=== PATIENT | male | born 1985 | race Caucasian/White ===

== ENCOUNTER 2020-07-05 13:37 | Emergency (ER) | payer OTHER ==
[~2020-07-05] VITALS: Ht 182.9 cm; Wt 81.7 kg
[~2020-07-05 13:37] MED LIST: GLUMETZA500 PO; PAXIL40 MG
[2020-07-05] MEDS ORDERED: ALPRAZOLAM ER1 MG PO (13:53)
[2020-07-05] MEDS ORDERED: BACTRIM DS TAB1 EACH PO ×2 (14:43→14:45)
[2020-07-05] MEDS ORDERED: KEFLEX500 M1 PO ×2 (14:43→14:45)
[2020-07-05] MEDS ORDERED: APAP W/CODEINE1 TA2 PO ×2 (14:43→14:45)
[2020-07-05 14:54] VITALS: BP 125/72
== END 2020-07-05 14:56 | disposition home or self-care (01) ==
LOC: M.ERS 13:37
DX: L03.113 Cellulitis of right upper limb (principal); E10.9 Type 1 diabetes mellitus without complications; F17.210 Nicotine dependence, cigarettes, uncomplicated

== ENCOUNTER 2021-09-24 05:15 | Emergency (ER) | payer OTHER ==
[~2021-09-24] VITALS: Ht 172.7 cm; Wt 104.3 kg
[~2021-09-24 05:15] MED LIST changes: +ALPRAZOLAM ER1 MG PO; +APAP W/CODEINE1 TA2 PO; +BACTRIM DS TAB1 EACH PO; +KEFLEX500 M1 PO
[2021-09-24 06:01] VITALS: BP 144/108
--- NOTE | 2021-09-24 12:23 | EKG ---
[place] [address] ELECTROCARDIOGRAM REPORT Name: DAMON LAL Room: [facility]#: [id number] Admission: 09/24/21 Attend Phys: Discharge: 09/24/21 Date of : 89 Date of Service: 09/24/21512 Report #: [id number] THIS REPORT FOR: //name// [facility] ED Test Date: 2021-09-24 Test Time: 05:13:08 Pat Name: DAMON LAL Department: Room: Gender: Critical Care Physician Assistant: MA : [id number] Requested By: Mikaela Yuen Order Number: [id number] MD: Isaias Berg Measurements Intervals [place] Rate: 109 P: 60 CT: 162 QRS: 36 QRSD: 92 T: 22 QT: 317 QTc: 427 Interpretive Statements Sinus tachycardia Low voltage, precordial leads Baseline wander in lead(s) V2 Electronically Signed On 09-24-2021 12:23:41 [employer] by Isaias Berg [email or web address] <ELECTRONICALLY SIGNED> By: Isaias Berg MD, [facility] 09/24/21 1223 2 Isaias Berg MD, [facility] /EPI
== END 2021-09-24 06:01 | disposition home or self-care (01) ==
LOC: M.ERS 05:15
DX: F41.9 Anxiety disorder, unspecified (principal); F17.210 Nicotine dependence, cigarettes, uncomplicated; E10.9 Type 1 diabetes mellitus without complications